=== PATIENT | female | born 1970 | race Caucasian/White ===

== ENCOUNTER 2020-05-24 21:27 | Emergency (ER) | payer SELFPAY ==
[~2020-05-24] VITALS: Ht 165.1 cm; Wt 87.1 kg
[2020-05-24 21:27] VITALS: BP 115/65
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
[2020-05-24] MEDS ORDERED: ACETAMINOPHEN EXTRA STRENGTH 500 MG TAB PO ONE (21:35)
[2020-05-24] MEDS ORDERED: CYCLOBENZAPRINE 10 MG TAB PO ONE (21:35)
--- NOTE | 2020-05-24 21:40 | NUR ---
EMT AT BEDSIDE FOR EKG
--- NOTE | 2020-05-24 21:43 | NUR ---
Camelia canales in ED - 05/24/20 at 2144 by COBY PT TAKEN TO XRAY VIA W/C
[2020-05-24] MEDS ORDERED: CRUSHER, PILL MC ONE (21:48)
--- NOTE | 2020-05-24 21:52 | NUR ---
PT TAKEN TO XRAY VIA VITOR
--- NOTE | 2020-05-24 22:00 | NUR ---
PT MOVED TO BED #9
--- NOTE | 2020-05-24 22:04 | NUR ---
PT RETURNED FROM XRAY VIA GURNEY TO ER BED #9
--- NOTE | 2020-05-24 22:08 | NUR ---
[place] [facility] AT BEDSIDE.
--- NOTE | 2020-05-24 22:10 | NUR ---
ERMD AT BEDSIDE FOR MEDICAL RE EVALUATION.
[2020-05-24 22:38] VITALS: BP 115/65
--- NOTE | 2020-05-24 22:38 | NUR ---
Patient discharged with v/s stable. Written and verbal after care instructions given and explained. Patient alert, oriented and verbalized understanding of instructions. Ambulatory with steady gait. All questions addressed prior to discharge. ID band removed. Patient advised to follow up with PMD. Rx of FLEXERIL & NAPROSYN given. Patient educated on indication of medication including possible reaction and side effects. Opportunity to ask questions provided and answered.
== END 2020-05-24 22:38 | disposition home or self-care (01) ==
LOC: MED 21:27
DX: S20.219A Contusion of unspecified front wall of thorax, initial encounter (principal); Z88.8 Allergy status to other drugs, medicaments and biological substances; V89.2XXA Person injured in unspecified motor-vehicle accident, traffic, initial encounter; Y93.89 Activity, other specified; Y92.89 Other specified places as the place of occurrence of the external cause; Y99.8 Other external cause status
CPT/HCPCS: 71046; 99283